=== PATIENT | female | born 1975 | race American Indian/Alaskan Native ===

== ENCOUNTER 2018-06-19 14:16 | Emergency (ER) | payer OTHER ==
[2018-06-19 16:01] VITALS: BP 173/52
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
[2018-06-19 16:20] LABS: HCG Qualitative,Urine Negative (Negative)
[2018-06-19 16:26] LABS: Bacteria,Urine 1+ /HPF (Negative); Bilirubin,Urine NEG (Negative); Blood,Urine NEG (Negative); Color,Urine Yellow (Yellow); Protein,Urine <15 mg/dL mg/dL (Negative); Urobilinogen,Urine < 2.0 mg/dL (<2.0)
--- NOTE | 2018-06-19 18:24 | Cat Scan Report ---
PROCEDURE: CT cervical spine without contrast. TECHNIQUE: Computerized tomography of the cervical spine was performed from the skull base to T1 wit hout contrast material. CT DOSE LENGTH PRODUCT: 903.55 mGycm HISTORY: Neck pain. COMPARISONS: None. FINDINGS: The cervical vertebrae have normal height and alignment. There are no fractures. There is no subluxat ion. There is mild disc space narrowing throughout the cervical spine. There are small vertebral body osteophytes in the mid and lower cervical spine. The spinal canal appears adequately patent. There a re no obvious disc protrusions, however this is much better evaluated by MRI scanning. 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 The neural foramina are widely patent. IMPRESSION: Degenerative disease as described. No evidence of acute cervical spine injury. This document is electronically signed by Ronald Mon MD., June 19 2018 06:22:30 PM ET
--- NOTE | 2018-06-19 19:32 | Cat Scan Report ---
PROCEDURE: CT LUMBAR SPINE WO CON TECHNIQUE: CT lumbar spine without contrast HISTORY: pain COMPARISONS: FINDINGS: Vertebral bodies are normal in height and alignment. Discs spaces appear within normal limits. Facet joints demonstrate normal alignment. The spinous processes are intact. IMPRESSION: Negative CT lumbar spine. This document is electronically signed by Landen Salazar MD., June 19 2018 07:29:36 PM ET
== END 2018-06-19 17:23 | disposition left against medical advice (07) ==
LOC: ED 14:16
DX: M54.2 Cervicalgia (principal); Z53.21 Procedure and treatment not carried out due to patient leaving prior to being seen by health care provider
CPT/HCPCS: 72125; 72131; 81001; 81025

== ENCOUNTER 2018-06-19 20:30 | Emergency (ER) | payer OTHER ==
--- NOTE | 2018-06-19 22:25 | Emergency Department Report ---
ED General Adult HPI - General Chief complaint: Neck Pain/Injury Stated complaint: NECK PAIN Source: patient Mode of arrival: Ambulatory Limitations: No Limitations - History of Present Illness Initial comments: pt check in for neck pain x 3 days , elope prior to evaluation and treatment Onset/Timin -: days(s) Location: neck Radiation: non-radiation Severity scale (0 -10): 7 Quality: burning Consistency: intermittent Improves with: none Worsens with: none Associated Symptoms: denies other symptoms Treatments Prior to Arrival: none - Related Data Allergies Allergy/AdvReac Type Severity Reaction Status Date / Time ciprofloxacin Allergy Anaphylaxis Verified 06/19/18 15:58 ED Review of Systems ROS: Stated complaint: NECK PAIN Other details as noted in HPI Constitutional: denies: chills, fever Eyes: denies: eye pain, eye discharge, vision change ENT: denies: ear pain, throat pain Respiratory: denies: cough, shortness of breath, wheezing Cardiovascular: denies: chest pain, palpitations Endocrine: no symptoms reported Gastrointestinal: denies: abdominal pain, nausea, diarrhea Genitourinary: denies: urgency, dysuria, discharge Musculoskeletal: other (neck pain ). denies: back pain, joint swelling, arthralgia Skin: denies: rash, lesions Neurological: denies: headache, weakness, paresthesias Psychiatric: denies: anxiety, depression Hematological/Lymphatic: denies: easy bleeding, easy bruising ED Past Medical Hx - Past Medical History Previous Medical History?: Yes Hx Psychiatric Treatment: Yes ([employer]) - Social History Smoking Status: Unknown if ever smoked ED Physical Exam - General Limitations: No Limitations General appearance: alert, in no apparent distress - Head Head exam: Present: atraumatic, normocephalic - Eye Eye exam: Present: normal appearance - ENT ENT exam: Present: mucous membranes moist - Neck Neck exam: Present: normal inspection - Respiratory Respiratory exam: Present: normal lung sounds bilaterally. Absent: respiratory distress - Cardiovascular Cardiovascular Exam: Present: regular rate, normal rhythm. Absent: systolic murmur, diastolic murmur, rubs, gallop - GI/Abdominal GI/Abdominal exam: Present: soft, normal bowel sounds - Rectal Rectal exam: Present: deferred - Extremities Exam Extremities exam: Present: normal inspection - Back Exam Back exam: Present: normal inspection - Neurological Exam Neurological exam: Present: alert, oriented X3 - Psychiatric Psychiatric exam: Present: normal affect, normal mood - Skin Skin exam: Present: warm, dry, intact, normal color. Absent: rash ED Medical Decision Making - Medical Decision Making pt eloped Critical care attestation.: If time is entered above; I have spent that time in minutes in the direct care of this critically ill patient, excluding procedure time. ED Disposition Clinical Impression: Neck pain Disposition: ELOPED Is pt being admited?: No Does the pt Need Aspirin: No Condition: Undetermined Referrals: FRANK CURTIS MD [Primary Care Provider] - 3-5 Days
== END 2018-06-19 21:20 | disposition left against medical advice (07) ==
LOC: ED 20:30
DX: M54.2 Cervicalgia (principal)
CPT/HCPCS: 99282

== ENCOUNTER 2018-06-25 23:37 | Emergency (ER) | payer SELFPAY ==
[2018-06-26] MEDS ORDERED: NACL 0.9% 1000 ML 1,000 ML IV ONE (07:37)
--- NOTE | 2018-06-26 08:30 | Emergency Department Report ---
ED Back Pain/Injury HPI - General Chief Complaint: Back Pain/Injury Stated Complaint: LOWER BACK PAIN Source: patient Limitations: No Limitations - History of Present Illness Initial Comments: This is a 42-year-old [place] female that presents with mid to low back pain from an injury yesterday at [employer]. Patient states she was leaning on the sink and [employer] when he gave way while washing hands. Patient states she did not fall but she attempted to catch the sink as it was falling and leaned forward. She is now complaining of pain to the medial lower back that is a dull constant pressure sensation. She reports pain currently as 6 out of 10 on pain scale. Patient states she took 4 ibuprofen prior to arrival. She reports some mild swelling initially which improved after taken ibuprofen. She denies numbness or tingling, erythema, nausea or vomiting, weakness, or paresthesias. MD Complaint: back pain Onset/Timin -: days(s) Similar Symptoms [facility]: [facility] Radiation: none Severity: moderate Severity scale (0 -10): 6 Quality: dull, aching, other (pressure) Consistency: constant Improves With: medication Worsens With: movement Associated Symptoms: denies: numbness, difficulty urinating, incontinence, fever/chills Treatments Prior to Arrival: NSAIDS - Related Data Previous Rx's Medication Instructions Recorded Last Taken Type Ibuprofen [Motrin 600 MG tab] 600 mg PO Q8H PRN #20 tablet 06/26/18 Unknown Rx methOCARBAMOL [Robaxin TAB] 500 mg PO BID PRN #12 tab 06/26/18 Unknown Rx Allergies Allergy/AdvReac Type Severity Reaction Status Date / Time ciprofloxacin Allergy Anaphylaxis Verified 06/19/18 15:58 ED Review of Systems ROS: Stated complaint: LOWER BACK PAIN Other details as noted in HPI Constitutional: denies: chills, fever Respiratory: denies: cough, shortness of breath, wheezing Cardiovascular: denies: chest pain, palpitations Gastrointestinal: denies: abdominal pain, nausea, diarrhea Musculoskeletal: back pain. denies: joint swelling, arthralgia Skin: denies: rash, lesions Neurological: denies: headache, weakness, paresthesias Psychiatric: denies: anxiety, depression ED Past Medical Hx - Past Medical History Morbid Obesity, Chronic Back Pain ED Back Pain Physical Exam - Exam General: Vital signs noted. No distress. Alert and acting appropriately, morbidly obese. Back/Abdomen: Yes Perilumbar Tenderness (tenderness on along T7 through T9), No Abdominal Tenderness, No Perithoracic Tenderness, No Sacroiliac Tenderness, No Flank Tenderness, No Straight Leg Raise Pain Neuro: Yes Normal Sensation, Yes Normal DTR's, Yes Normal Gait, No Motor Weakness ED Course Vital Signs 06/26/18 03:37 Temperature 98.7 F Pulse Rate 90 Respiratory 18 Rate Blood Pressure 146/55 Ed Back Pain Tests - Tests Tests: Normal X Rays ED Medical Decision Making - Radiology Data Radiology results: report reviewed THORACIC SPINE, 2 VIEWS: HISTORY: back pain. Normal bone mineralization. No evidence for compression deformity, malalignment, or bone lesion. The posterior ribs are intact. The paraspinal soft tissues are within normal limits. IMPRESSION: Thoracic spine within normal limits. - Medical Decision Making Patient was examined by me. Vitals are normal and patient is in no acute distress. Obtained a urine test and x-ray of thoracic spine. Negative test. Dictated per radiologist report reviewed by myself with no acute findings. Patient informed of results. Start ibuprofen and Robaxin for pain associated with muscle strain. Plan discussed with patient to discharge home and treat outpatient. He agrees with ER plan. Patient discharged home in stable condition. Follow up with PCP in 2-3 days. Critical care attestation.: If time is entered above; I have spent that time in minutes in the direct care of this critically ill patient, excluding procedure time. ED Disposition Clinical Impression: Muscle strain Back pain Qualifiers: Back pain location: thoracic back pain Chronicity: acute Back pain laterality: midline Qualified Code(s): M54.6 - Pain in thoracic spine Disposition: - TO HOME OR SELFCARE Is pt being admited?: No Does the pt Need Aspirin: No Condition: Stable Instructions: Muscle Strain (ED), Lumbar Radiculopathy (ED) Additional Instructions: Rest Use ice or heat on affected area for 20 minutes and off for 2 hours. Take pain medication as needed for pain. Don't drive or operate heavy machinery while taking muscle relaxers because they may cause drowsiness. Follow up with Primary Care Provider in 2-3 days. Prescriptions: Ibuprofen [Motrin 600 MG tab] 600 mg PO Q8H PRN #20 tablet PRN Reason: Pain methOCARBAMOL [Robaxin TAB] 500 mg PO BID PRN #12 tab PRN Reason: Muscle Spasm Referrals: FRANK CURTIS MD [Primary Care Provider] - 3-[address] [facility] [Outside] - 3-5 Days [facility] [Outside] - 3-5 Days Time of Disposition: 10:58
--- NOTE | 2018-06-26 10:54 | XRay Report ---
THORACIC SPINE, 2 VIEWS: HISTORY: back pain. Normal bone mineralization. No evidence for compression deformity, malalignment, or bone lesion. The posterior ribs are intact. The paraspinal soft tissues are within normal limits. IMPRESSION: Thoracic spine within normal limits.
[2018-06-26 11:20] VITALS: BP 139/56
== END 2018-06-26 11:20 | disposition home or self-care (01) ==
LOC: ED 23:37
DX: S39.012A Strain of muscle, fascia and tendon of lower back, initial encounter (principal); Z88.1 Allergy status to other antibiotic agents; X58.XXXA Exposure to other specified factors, initial encounter; Y93.89 Activity, other specified; Y92.89 Other specified places as the place of occurrence of the external cause; Y99.8 Other external cause status
CPT/HCPCS: 36415; 72070; 84703